=== PATIENT | male | born 2000 | race Caucasian/White ===

== ENCOUNTER 2025-08-07 20:44 | Emergency (ER) | payer OTHER, SELFPAY ==
--- NOTE | ~2025-08-07 | XR_ITS ---
CLINICAL HISTORY: pain swelling post injury 3 view right ankle Comparison: None provided Findings: No acute fractures or dislocations. No ankle effusion. No radiopaque foreign body. IMPRESSION: 1. No acute findings. This document has been electronically signed by: Yandel Haney MD on 08/08/2025 01:39:47
[2025-08-07 20:53] VITALS: BP 116/63; PULSE 102; RESP 18; TEMP 36.7; O2SAT 98; BMI 27.4
--- NOTE | 2025-08-07 20:53 | ED.GENADULT ---
HPI - General Adult General Chief complaint: Extremity Injury, Lower Stated complaint: Injury Time Seen by Provider: 08/07/25 23:55 Source: patient Mode of arrival: ambulatory Limitations: no limitations History of Present Illness ED Provider: Conrad FERRER HPI narrative: The patient is a 25-year-old otherwise healthy male presenting to the ED for evaluation of right posterior ankle pain which began around 19:00 while playing basketball. The patient reports he jumped while playing an upon jumping (not upon landing), he felt a sharp pain in his posterior right ankle described as some IV stepping on his ankle and causing him to fall to the ground. The patient denies head strike or other injury. The patient reports since that time he has been experiencing pain and numbness to the posterior distal calf and ankle. The patient denies previous injury to the affected extremity. The patient has not taken any medication for symptoms prior to arrival in the ED. The patient denies any recent antibiotics. Related Data Previous Rx's ?Medication ?Instructions ?Recorded acetaminophen 500 mg capsule 1,000 mg (2 x 500 mg) PO .q8 PRN 08/08/25 fever or pain #30 caps ibuprofen 600 mg tablet 600 mg PO Q8H PRN fever or pain 08/08/25 #30 tabs Allergies Allergy/AdvReac Type Severity Reaction Status Date / Time Penicillins Allergy Unknown Verified 08/07/25 20:57 Review of Systems Review of Systems: Yes all other systems are reviewed and are negative PMFSH Social History Social History Smoked in Last 30 Days: No Use of substances other than those prescribed or required for medical reasons: No Advance Directives: No Advance Directives Information Provided: No Physical Exam ED Vital Signs: Vital Signs - 24 hr 08/07/25 20:53 08/08/25 01:26 Temperature 98.1 F 98.1 F Pulse Rate 102 H 65 Respiratory Rate 18 17 Blood Pressure 116/63 138/78 Pulse Oximetry 98 99 Oxygen Delivery Method Room Air Room Air BMI result Body Mass Index 27.4 CONSTITUTIONAL: The patient appears non-toxic, well nourished and in no acute distress. Vital signs as documented. HEAD: Atraumatic, normocephalic. EYES: EOMs grossly intact, pupils equal, conjunctiva clear, no exudate. ENT: Nares patent, no discharge. Airway patent, no audible stridor, visible mucosa is pink and moist without noted lesions. NECK: trachea is midline, no obvious masses or gross abnormalities. CHEST: Symmetric movement, normal appearance. LUNGS: Non-labored work of breathing. CARDIAC: No evidence of hypoperfusion. ABDOMEN: Nondistended, no obvious injury. : Deferred. EXTREMITIES: Right lower extremity demonstrates painful active dorsiflexion, but no active plantar flexion, and severe pain with passive dorsiflexion. There was also tenderness of the distal posterior calf. Luz test positive for Achilles tendon rupture. Distal CSM intact, 2+ DP/PT pulses. Moves all other extremities spontaneously without reported pain. No other obvious injury or deformity noted. NEURO: Alert and oriented x3, CN II-XII appear grossly intact. Cerebellar Functioning grossly intact. Speech clear and appropriate. SKIN: Warm, dry, color appropriate. No rashes or lesions noted. Course Course Course Narrative: Medical screening exam performed. Please refer to detailed history, exam, evaluation, and management by primary provider. Turned playing basketbal earlier felt pulling and tightness to back of right calf/achilles area. No direct trauma. Medications Administered Discontinued Medications Generic Name Dose Route Start Last Admin Trade Name Jesusq PRN Reason Stop Dose Admin Acetaminophen 975 mg 08/08/25 00:01 08/08/25 00:44 Acetaminophen 325 Mg Tablet PO 08/08/25 00:02 975 mg ONCE ONE Administration Ibuprofen 600 mg 08/08/25 00:01 08/08/25 00:44 Ibuprofen 600 Mg Tablet PO 08/08/25 00:02 600 mg ONCE ONE Administration Procedures Orthopedic Splinting/Casting Injury #1: Side: right Lower Extremity Injury Location: lower leg and ankle Lower Extremity Immobilizer: posterior splint (with passive plantar flexion in position of comfort) Other Orthopedic Equipment: crutches Additional Comments: Distal CSM intact pre and post splinting Medical Decision Making Medical Decision Making MDM Narrative: 12:08 AM 08/08/2025 (Mary Carmen FERRER): The patient is a 25-year-old otherwise healthy male presenting to the ED for evaluation of right posterior ankle pain which began around 19:00 while playing basketball. The patient reports he jumped while playing an upon jumping (not upon landing), he felt a sharp pain in his posterior right ankle described as some IV stepping on his ankle and causing him to fall to the ground. The patient denies head strike or other injury. The patient reports since that time he has been experiencing pain and numbness to the posterior distal calf and ankle. The patient denies previous injury to the affected extremity. The patient has not taken any medication for symptoms prior to arrival in the ED. The patient denies any recent antibiotics. On exam the patient has intact but painful active dorsiflexion, but no active plantar flexion, and severe pain with passive dorsiflexion. There was also tenderness of the distal posterior calf. Luz test positive for Achilles tendon rupture. Distal CSM is otherwise intact, 2+ DP/PT pulses. Patient's presentation consistent with ruptured Achilles tendon. Patient will be treated with ibuprofen and Tylenol, we will obtain x-ray to confirm no evidence of acute fracture, and patient will be placed in a posterior splint with passive plantar flexion. We will also provide crutches and orthopedic follow up. 1:01 AM 08/08/2025 (Mary Carmen FERRER): This provider's review of the patient's ankle x-ray shows no acute fracture, there is edema noted to the posterior ankle on lateral films. Patient placed in a posterior splint with a passive plantar flexion. Distal CSM intact pre and post splinting. Admission/Observation Consideration of admission/observation: Escalation of care including admission/observation considered Independent Interpretation I performed an independent interpretation of an: Plain X-Ray (No acute fracture identified, ankle mortise is intact, there is edema noted to the posterior ankle in the area of the Achilles tendon insertion on lateral films.) External Record Review External record reviewed: Outpatient record Prescription Management I considered prescription management with: Pain Medication Discharge Plan Discharge Clinical Impression: Acute rupture of Achilles tendon Patient Disposition: Home, Self-Care Instructions: Crutch Instructions (ED), Achilles Tendon Rupture (ED), P.R.I.C.E. Treatment (ED), Tendon Rupture (ED) Additional Instructions: Thank you for choosing [facility]'s Emergency Department for your care today. Your exam and x-ray today are consistent with an acute rupture of your Achilles tendon of your right ankle. At this time there is no indication for admission to the hospital or continued ED observation, and it is safe to discharge you home. We have placed you in a splint and provided you with crutches. Please use the crutches to remain non-weightbearing until instructed otherwise by Orthopedics. Please keep the splint on and dry until follow up with Orthopedics. Please contact the orthopedic clinic by calling the provided number to schedule a follow up appointment re-evaluation and definitive management which may include surgery. You should take alternating (staggered) doses of ibuprofen 600mg and Tylenol 1000mg every 4 hours as needed for any additional pain. Please rest and elevate the injured area, and apply ice over the splint for 20 minutes every hour. Please also follow up with your primary care physician for re-evaluation, additional management of your symptoms, and continued preventative care. If you do not have a primary care physician, please call the [facility] at [phone] to establish a new primary care physician. While waiting to establish your new primary care physician, you can call our Walk-in [facility] at [phone] for non-emergency needs. Please return to the emergency department if you develop a severe or sudden change in your symptoms, a fever over 100.4 that does not improve with Tylenol or Ibuprofen, recurrent vomiting, or any other new or worsening symptoms or concerns. Prescriptions: New acetaminophen 500 mg capsule 1,000 mg PO .q8 PRN (Reason: fever or pain) Qty: 30 0RF ibuprofen 600 mg tablet 600 mg PO Q8H PRN (Reason: fever or pain) Qty: 30 0RF Referrals: [facility] [Provider Group] Clinical Impression: Acute rupture of Achilles tendon [facility] [Outside] Clinical Impression: Acute rupture of Achilles tendon Interventions: ED Discharge Assessment Last Done: 08/08/25 01:26 Discharge Date/Time: 08/08/25 01:32 Print Language: Togolese
--- OUTSIDE RECORDS SUMMARY | 2025-08-08 00:12 | XMS_ITS | Clinical Summary ---
Author Organization [facility] Address [address] [place] [phone] Phone Care Team Providers Care Vice President Of Operations Name Role Phone Dean Rabago MD Primary Care Provider Allergies No known active allergies Medications No known medications Social History Tobacco Use Types Packs/Day Years Used Date Smoking Tobacco: Never Smokeless Tobacco: Never Alcohol Use Standard Drinks/Week Comments No 0 (1 standard drink = 0.6 oz pur e alcohol) Education Answer Date Recorded Are you interested in more education? Not on roberto e 01/03/2023 Are you concerned about learning? Not on file 01/03/2023 No 01/03/2023 No 01/03/2023 Sex and Gender Information Value Date Recorded Sex Assigned at Male 01/13/2018 8:17 PM EDT Legal Sex Male 8:48 PM EDT Gender Identity Male 01/13/2018 8:17 PM EDT Sexual Orientation Straight 01/13/2018 8: 17 PM EDT Last Filed Vital Signs Vital Sign Reading Time Taken Comments Blood Pressure 129/62 01/13/2018 10:30 PM EDT Pulse 119 01/13/2018 8:15 PM EDT Temperature - - Respiratory Rate 20 01/13/2018 8:15 PM EDT Oxygen Saturation 97% 01/13/2018 10:30 PM EDT Inhaled Oxygen Concentration - - Weight 90.7 kg (200 lb) 01/13/2018 8:15 PM EDT Height 193 cm (6' 4 ) 01/13/2018 8:15 PM EDT Body Mass Index 24.34 01/13/2018 8:15 PM EDT Plan of Treatment Not on file Medical Devices Not on file Insurance [facility] PPO EPO [facility] PPO EPO [facility] PPO EPO Member Subscriber Plan / Payer (Ef fective 2003-Present) Name:Juanito Jimenez Relation to Subscriber:Child Name:EUGENIASHRADDHA WATSON Fawn Date of :1902 (Home) Address: [place] [address] [place] [address] Payer ID:[id number] (NA) Type:PPO Address: [address] [place], [place] PPO EPO Member Subscriber Plan / Payer (Ef fective 2003-) Name:Juanito Jimenez Relation to Subscriber:Child Name:EUGENIASHRADDHA WATSON [place]wn Date of :1902 (Home) Address: [place] [address] [place] [address] Payer ID:[id number] (NA) Type:PPO Address: [address] [place], [place] [facility] PPO EPO [facility] PPO EPO PPO EPO [facility] PPO EPO Care Teams Vice President Of Operations Relationship Specialty Start Date End Date Dean Rabago MD [address] [place] [address], [facility] [address] [place] [address] [email or web address] PCP - General Pediatrics 01/13/18 Additional Source Comments The information contained in this document represents components of the legal health record. It is not the complete legal health record.[facility]
[2025-08-08 01:26] VITALS: BP 138/78; PULSE 65; RESP 17; TEMP 36.7; O2SAT 99
== END 2025-08-08 01:32 | disposition home or self-care (01) ==
PROVIDERS: Emergency Provider Emergency Medicine
DX: S86.011A Strain of right Achilles tendon, initial encounter (principal); X58.XXXA Exposure to other specified factors, initial encounter; Y93.67 Activity, basketball; Y92.9 Unspecified place or not applicable; Y99.9 Unspecified external cause status; Z88.0 Allergy status to penicillin
CPT/HCPCS: 29515; 73610; 99284

== ENCOUNTER → 2025-08-07 23:59 | Outpatient (BNV) | payer OTHER, SELFPAY | PROVIDERS: Emergency Provider Emergency Medicine; Visit Provider Radiology Diagnostic Radiology | DX: M25.571 Pain in right ankle and joints of right foot (principal); R22.41 Localized swelling, mass and lump, right lower limb | CPT/HCPCS: 73610 ==